=== PATIENT | female | born 1955 | race African-American/Black ===

== ENCOUNTER 2020-09-25 05:59 | Day surgery (SDC) | payer MEDICARE ==
[~2020-09-25] VITALS: Ht 170.2 cm; Wt 112.9 kg
[~2020-09-25 05:59] MED LIST: CATAPRES0.3 MG PO; COREG25 MG PO; GABAPENTIN300 MG PO; GLUCOTROL 5 MG T5 MG PO; HYDRALAZINE HC100 MG PO; HYDROCODON-ACE1 EAC7 PO; HYTRIN10 MG PO; ROCALTROL0.5 MCG PO; TAPAZOLE 5 MG TA5 MG PO; TRESIBA FL100 UNIT/1 SC; ZYLOPRIM100 MG PO
[2020-09-25 06:39] LABS: ANION GAP 15.1 mmol/L (8-16); CALCIUM 10.6 mg/dL (8.5-10.1); CARBON DIOXIDE 23.9 mmol/L (21.0-32.0); CREATININE - SERUM 4.2 mg/dL (0.6-1.3)
[2020-09-25 06:45] LABS: BASOPHILS 0.3 % (0-2); EOSINOPHILS 3.5 % (0-7); HEMATOCRIT 29.4 % (36.0-48.0); HEMOGLOBIN 9.2 g/dL (12-16); IMMATURE GRANULOCYTES 0.3 % (0-5); LYMPHOCYTE ABS# 1.57 10x3/uL (1.18-3.74); LYMPHOCYTES 39.4 % (15-50); MCH 24.5 pg (26.0-34.0); MCHC 31.3 g/dL (31.0-37.0); MCV 78.2 fL (80.0-100.0); MEAN PLATELET VOLUME 10.7 fL (7.4-10.4); MONOCYTES 12.8 % (2-11); NEUTROPHIL ABS# 1.74 10x3/uL (1.56-6.13); NEUTROPHILS 43.7 % (40-80); PLATELET COUNT 189 10x3/uL (130-400); RBC 3.76 10x6/uL (4.00-5.40); RDW 16.9 % (11.5-14.5)
[2020-09-25 07:27] VITALS: Ht 170.2 cm; Wt 112.9 kg
[2020-09-25 07:29] LABS: INR 1.23 (0.85-1.17); PROTIME 14.4 SECONDS (11.6-15.0)
[2020-09-25] MEDS ORDERED: HYDROCODON-ACE1 EAC7 PO (12:19)
--- NOTE | 2020-09-25 13:44 | NUR ---
1330 IV REMOVED AND PRESSURE HELD. ASSISTED TO BATHROOM AND VOIDED, BACK IN BED
--- NOTE | 2020-10-01 13:35 | OP ---
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 OPERATION PERFORMED: Open surgical revision without thrombectomy of AV fistula with open endarterectomy and patch angioplasty of the arterial anastomosis. SURGEON: Shruthi Coleman MD ANESTHESIA: Regional nerve block plus TIA. PREOPERATIVE NOTE: Ms. Pillai is a 65-year-old lady with chronic kidney disease, who is anticipated to require dialysis and has had a left brachiocephalic AV fistula created. It, however, has not matured and on angiography, she has been found to have a near occlusion severe stenosis of the brachial artery right at the arterial anastomosis. She was brought to the operating room at this time for an open revision. DESCRIPTION OF PROCEDURE: Under regional nerve block and sedation or TIVA, the patient was placed in supine position and the arm prepped and draped in a sterile manner. I examined her with the ultrasound, and identified the area of stenosis in the JA segment and arterial anastomotic area. I made a generous incision there and exposed the brachial artery proximal and distal to the anastomosis and controlled with Silastic loops. As then I did the fistula above the level of the stenosis. The patient was systemically heparinized and after a satisfactory circulation time, the artery and fistula were occluded and the fistula was opened just proximal to the area of stenosis and that venotomy and arteriotomy was continued down actually through the old suture line. I performed an endarterectomy of the brachial artery at that point and removed neointimal hyperplasia from the JA segment. This was then flushed and irrigated thoroughly with heparinized saline and then closed with the use of a bovine pericardial patch, sutured circumferentially with 6-0 Prolene. BioGlue was used for additional sealant hemostasis. With release of the occluding clamps and loops, excellent flow was immediately established within the fistula. There was a strong palpable pulse and thrill and there was hyperemic continuous pulsatile flow in the brachial artery and in the radial artery and ulnar artery distally. At this point, the patient was awakened and taken to the recovery room in stable condition. Blood loss from the operation was trivial and unreplaced. No drain was used. Sponges, instruments and needles were accounted for and no surgical specimen was submitted for histopathology. PLAN: The patient will be discharged to home today and follow up in my office next week. The fistula I believe may go ahead now and mature, but still it is relatively deep in adipose tissue in the upper arm and could still possibly require super fistulization. OPERATIVE REPORT [id number] LAURI PILLAI I have started her on Plavix 75 mg daily and she is given a prescription for [place] 5/325, #10 tablets 1-2 q.4-6 hours p.r.n. pain. We are delaying plans for implantation of a PD catheter until closer to needing to start dialysis. Also for that procedure, she will need to be off Plavix and aspirin for 5 days preop. Once the patient has end-stage or CKD and has begun dialysis, she should have a fistulogram to examine the arterial anastomosis and assess her for possible stent in the JA segment or additional balloon angioplasty and do also evaluate for steal syndrome. TRANSINT:[id number] Voice Confirmation ID: [id number] DOCUMENT ID: [id number] SHRUTHI COLEMAN MD at 1335 CC: CHARLY HOLBROOK [id number] DICTATION DATE: 10/01/20 1231 [facility] SUPERVISOR: 10/01/20 1325 [facility] 09/25/20 [id number] [place] [address]
== END 2020-09-25 14:15 | disposition home or self-care (01) ==
LOC: D.OPS 05:59
PROVIDERS: ATTEND Surgery
DX: N18.5 Chronic kidney disease, stage 5 (principal); Z48.812 Encounter for surgical aftercare following surgery on the circulatory system; I10 Essential (primary) hypertension